=== PATIENT | male | born 1965 | race Caucasian/White ===

== ENCOUNTER → 2019-04-01 | Outpatient (CLI) | payer OTHER ==
[~2019-04-01] MED LIST: ATENOLOL 25 MG25 M1 PO; AVELOX 400 MG400 MG PO; CEFTIN500 MG PO; CLEOCIN HCL300 MG PO; DARVOCET-N 1001 EAC1 PO; IBUPROFEN 800800 M1 PO; PEPCID AC20 M1 PO; PERCOCET 5-3251 EACH PO; PREDNISONE 20 M20 M1; SENOKOT-S1 TA1 PO
== END ==
LOC: CAT 07:37
DX: Z13.6 Encounter for screening for cardiovascular disorders (principal); E78.00 Pure hypercholesterolemia, unspecified; I25.10 Atherosclerotic heart disease of native coronary artery without angina pectoris